=== PATIENT | female | born 1960 | race Caucasian/White ===

== ENCOUNTER 2019-01-30 05:59 | Day surgery (SDC) | payer OTHER, BC ==
[2019-01-30] MEDS ORDERED: FENTAnyl 50 MCG/ML VIAL (08:05)
[2019-01-30] MEDS ORDERED: MIDAZOLAM 1 MG/ML 2 ML INJ (08:05)
== END 2019-01-30 12:51 | disposition home or self-care (01) ==
LOC: GIL 05:59
DX: K29.50 Unspecified chronic gastritis without bleeding (principal); K44.9 Diaphragmatic hernia without obstruction or gangrene; K21.9 Gastro-esophageal reflux disease without esophagitis; I10 Essential (primary) hypertension
CPT/HCPCS: 43239; 88305; 88312

== ENCOUNTER 2019-04-07 09:16 | Day surgery (SDC) | payer OTHER ==
[2019-04-07] MEDS ORDERED: MIDAZOLAM 1 MG/ML 2 ML INJ ×2 (10:52)
[2019-04-07] MEDS ORDERED: FENTAnyl 50 MCG/ML VIAL (10:52)
== END 2019-04-07 11:01 | disposition home or self-care (01) ==
LOC: GIL 09:16
DX: Z12.11 Encounter for screening for malignant neoplasm of colon (principal); K64.8 Other hemorrhoids; K57.30 Diverticulosis of large intestine without perforation or abscess without bleeding; I10 Essential (primary) hypertension; E78.5 Hyperlipidemia, unspecified
CPT/HCPCS: 45378